=== PATIENT | female | born 1990 | race Caucasian/White ===

== ENCOUNTER 2018-09-28 10:01 | Outpatient (CLI) | payer MEDICAID ==
--- NOTE | 2018-09-28 13:53 | XRAY Report ---
Reason: CHEST WALL PAIN Procedure Date: 09/28/2018 Accession Number: [id number] / [id number] Procedure: XR - Chest 2 View X-Ray CPT Code: 05449 FULL RESULT: EXAM: CHEST RADIOGRAPHY EXAM DATE: 09/28/2018 10:27 AM. CLINICAL HISTORY: Chest wall pain. COMPARISON: None. TECHNIQUE: 2 views. FINDINGS: Lungs/Pleura: No focal opacities evident. No pleural effusion. No pneumothorax. Normal volumes. Mediastinum: Heart and mediastinal contours are unremarkable. Other: None. IMPRESSION: Normal 2-view chest radiography. RADIA
== END 2018-09-28 10:02 | disposition home or self-care (01) ==
LOC: DI 10:01
PROVIDERS: ATTEND Internal Medicine
DX: R07.89 Other chest pain (principal)
CPT/HCPCS: 71046

== ENCOUNTER 2020-04-17 06:48 | Outpatient (CLI) | payer MEDICAID ==
--- NOTE | 2020-04-17 12:26 | Ultrasound Report ---
PROCEDURE: OB First Trimester INDICATIONS: RETAINED PRODUCTS OF CONCEPTION OUTSIDE/PRIOR DATING DATA: Last menstrual period (LMP): 02/13/2020. LMP-based estimated date of delivery (CLIFF): 11/19/2020. First dating scan (date and location): 04/17/2020. Estimated date of delivery (CLIFF) from first dating scan: 11/22/2020. TECHNIQUE: Real-time scanning was performed of the fetus and maternal pelvic organs, with image documentation. COMPARISON: None FINDINGS: Embryo: Single live intrauterine is identified with crown-rump length measuring 2.0 cm cor responding to 8 weeks 4 days. No heart rate is identified at 171 bpm. Cervical length is within nata l limits. There is a small focus of subchorionic hemorrhage measuring 4.0 x 2.0 x 1.7 cm. Measurement variability in dating: +/- 4 weeks by LMP, +/- 7 days by mean sac diameter (use before 6 weeks gestation if crown-rump length not able to be measured), +/- 5 days by crown-rump length (6-12 weeks gestation). Maternal organs: Ovaries are unremarkable. Limited images through the kidneys demonstrate no hydron ephrosis. IMPRESSION: 1. Single live intrauterine with ultrasound gestational age of 8 weeks 4 days corresponding to ultrasound CLIFF of 11/22/2020. 2. Subchorionic hemorrhage as above. 3. Recommend follow-up imaging at 20-22 weeks for dates and anatomy. Reviewed by: Keshia Morgan MD on 04/17/2020 12:25 PM PDT Approved by: Keshia Morgan MD on 04/17/2020 12:25 PM PDT Station ID: [id number]
== END 2020-04-17 06:49 | disposition home or self-care (01) ==
LOC: DI 06:48
PROVIDERS: ATTEND Obstetrics & Gynecology
DX: Z32.01 Encounter for pregnancy test, result positive (principal)
CPT/HCPCS: 76801

== ENCOUNTER 2020-07-01 11:21 | Outpatient (CLI) | payer MEDICAID ==
--- NOTE | 2020-07-01 16:51 | Ultrasound Report ---
PROCEDURE: OB Detailed Eval INDICATIONS: SUPERVISION OF NORMAL PREGNENCY OUTSIDE/PRIOR DATING DATA: Last menstrual period (LMP): 02/13/2020. LMP-based estimated date of delivery (CLIFF): 11/19/2020. First dating scan (date and location): 04/17/2020. Estimated date of delivery (CLIFF) from first dating scan: 11/22/2020. TECHNIQUE: Real-time scanning was performed of the fetus, with image documentation and biometric measurements. Endovaginal scanning: Not needed. COMPARISON: 04/17/2020 FINDINGS: General: A single living intrauterine gestation is present. Presentation: Transverse, variable at this time Placenta: Placental position is posterior, without previa. Amniotic fluid index: 13.9 cm, 50th percentile for gestational age. heart rate: 139 beats per minute. Maternal cervical canal: 4.5 cm long; normal length is 2.5 cm or more. biometrics: Biparietal diameter: 4.4 cm, 19 weeks 2 days Head circumference: 16.1 cm, 18 weeks 6 days Abdominal circumference: 14.3 cm, 19 weeks 4 days Femur length: 3.0 cm, 19 weeks 3 days Estimated gestational age from initial scan: 19 weeks 3 days. Composite gestational age from present scan: 19 weeks 1 day Estimated weight and percentile: 2 93 g, 46.3 percentile Measurement variability in biometric dating: +/- 10 days from 12-20 weeks gestation, +/- 2 weeks from 20-30 weeks gestation, +/- 3 weeks at 30 weeks gestation or later. Anatomic survey: Neuro: Ventricles are normal at less than 10 mm. Cisterna magna is normal at 3-11 mm. Cerebellum i s normal in size and morphology. Nuchal skin fold: Normal at less than 6 mm between 14 and 20 weeks gestational age. Face: Nose and lips, facial profile are normal. Spine: No evidence for spina bifida. Heart: 4-chambered heart is present, with normal ventricular outflow tracts. Diaphragm: Diaphragm is intact. Stomach: Left-sided stomach is present. Kidneys: No hydronephrosis. Normal is less than 5 mm in 2nd trimester, less than 7 mm in 3rd trimester. Cord: 3 vessel cord has orthotopic insertion. Bladder: Normal in size. Extremities: All 4 extremities are visualized. IMPRESSION: Appropriate interval growth, no anomaly seen. Normal amniotic fluid volume, the delivery date i s projected to be centered on 11/22/2020, +/- 5 days. Current position is transverse, variable at this time. Reviewed by: Rodolfo Ramirez MD on 07/01/2020 4:50 PM PDT Approved by: Rodolfo Ramirez MD on 07/01/2020 4:50 PM PDT Station ID: [id number]
== END 2020-07-01 11:22 | disposition home or self-care (01) ==
LOC: DI 11:21
PROVIDERS: ATTEND Obstetrics & Gynecology
DX: Z34.80 Encounter for supervision of other normal pregnancy, unspecified trimester (principal)
CPT/HCPCS: 76811

== ENCOUNTER 2020-08-16 21:49 | Outpatient (CLI) | payer MEDICAID ==
[2020-08-16 22:37] LABS: BASOPHILS # (AUTO) 0.1 10^3/uL (0.0-0.1); BASOPHILS % (AUTO) 0.6 %; EOSINOPHILS # (AUTO) 0.2 10^3/uL (0.0-0.7); EOSINOPHILS % (AUTO) 1.3 %; HGB - HEMOGLOBIN 11.1 g/dL (12.0-16.0); LYMPHOCYTES # (AUTO) 3.4 10^3/uL (1.5-3.5); LYMPHOCYTES % (AUTO) 27.8 %; MEAN CORPUSCULAR HEMOGLOBIN 32.2 pg (27.0-31.0); MEAN CORPUSCULAR HGB CONC 33.8 g/dL (32.0-36.0); MEAN CORPUSCULAR VOLUME 95.1 fL (81.0-99.0); MEAN PLATELET VOLUME 10.6 fL (7.9-10.8); MONOCYTES % (AUTO) 7.9 %; NEUTROPHILS # (AUTO) 7.2 10^3/uL (1.5-6.6); NEUTROPHILS % (AUTO) 58.3 %; PLT - PLATELET COUNT 218 10^3/uL (130-450); RED BLOOD COUNT 3.45 10^6/uL (4.20-5.40); RED CELL DISTRIBUTION WIDTH 12.7 % (12.0-15.0); WHITE BLOOD COUNT 12.3 x10^3/uL (4.8-10.8)
[2020-08-16 23:04] VITALS: BP 132/73
[2020-08-16 23:07] LABS: ALBUMIN/GLOBULIN RATIO 0.9 (1.0-2.2); BILIRUBIN,TOTAL 0.3 mg/dL (0.2-1.0); CALCIUM 9.4 mg/dL (8.5-10.3); CREATININE 0.5 mg/dL (0.4-1.0); TOTAL PROTEIN 6.3 g/dL (6.7-8.2)
[2020-08-16 23:09] LABS: PLATELET ESTIMATE, MANUAL NORMAL (130-450,000) (NORMAL); PLATELET MORPHOLOGY NORMAL APPEARANCE (NORMAL); RBC MORPHOLOGY (MULTIPLE) NORMAL APPEARANCE (NORMAL)
[2020-08-16 23:19] LABS: CREATININE,URINE 37.1 mg/dL; TOTAL PROTEIN,URINE TIMED < 6 mg/dL
--- NOTE | 2020-08-16 23:33 | Labor Flowsheet ---
Labor Flowsheet Datetime Report Generated by CPN: 08/16/2020 23:33 Datetime: 08/16/2020 22:59 VITAL SIGNS NBP Sys/Rosa/Mean (mmHg): 132 : 73 : 86 Pulse: 101 Datetime: 08/16/2020 22:03 SpO2 (%): 100
--- NOTE | 2020-08-17 13:19 | PROCEDURE REPORT ---
- HPI Diagnosis/Indication for NST: Other (abd pain) Current EDU 11/19/20 Gestation 26 Weeks and 3 Days 3 Para 2 Vital Signs Temperature 98.8 F 08/16/20 22:08 Heart Rate 109 H 08/16/20 22:08 Respiratory Rate 16 08/16/20 22:08 Blood Pressure 146/84 H 08/16/20 22:08 O2 Saturation 100 08/16/20 22:08 Temperature 98.8 F 08/16/20 22:08 Heart Rate 101 H 08/16/20 22:36 Respiratory Rate 16 08/16/20 22:08 Blood Pressure 132/73 H 08/16/20 22:36 O2 Saturation 100 08/16/20 22:08 - NST Procedure Category 1 NST [employer] neg - Results and Plan Findings/Impression: Category 1 NST [employer] neg Plan: Pt has had intermittently elevated BP this and felt upper abd pain which she knew was a warning sign for preeclampsia. No SZYMANSKI, visual changes, or c hange in swelling. RUQ has been 4/10 intensity. Initial BP was elevated but repeat BPs were all normal. Normal PIH labs. P:C ratio 0. Preeclampsia precautions given, OK to follow up per routine in clinic. Take BP daily and keep a log.
== END 2020-08-16 23:30 | disposition home or self-care (01) ==
LOC: WFO 21:49 → FBP 21:50 → WFO 23:30
PROVIDERS: ATTEND Obstetrics & Gynecology
DX: O99.891 Other specified diseases and conditions complicating pregnancy (principal); R10.10 Upper abdominal pain, unspecified; O16.2 Unspecified maternal hypertension, second trimester; Z3A.26 26 weeks gestation of pregnancy
CPT/HCPCS: 80053; 82570; 84156; 84450; 84460; 84550; 85025; 99213

== ENCOUNTER 2020-09-02 09:18 | Outpatient (CLI) | payer MEDICAID ==
[2020-09-02 10:41] LABS: HGB - HEMOGLOBIN 11.6 g/dL (12.0-16.0); MEAN CORPUSCULAR HEMOGLOBIN 32.1 pg (27.0-31.0); MEAN CORPUSCULAR HGB CONC 33.2 g/dL (32.0-36.0); MEAN CORPUSCULAR VOLUME 96.7 fL (81.0-99.0); MEAN PLATELET VOLUME 10.7 fL (7.9-10.8); RED BLOOD COUNT 3.61 10^6/uL (4.20-5.40); RED CELL DISTRIBUTION WIDTH 12.8 % (12.0-15.0); WHITE BLOOD COUNT 10.3 x10^3/uL (4.8-10.8)
== END 2020-09-02 09:19 | disposition home or self-care (01) ==
LOC: LAB 09:18
PROVIDERS: ATTEND Obstetrics & Gynecology
DX: Z34.80 Encounter for supervision of other normal pregnancy, unspecified trimester (principal)
CPT/HCPCS: 36415; 82950; 85027

== ENCOUNTER 2020-09-05 12:33 | Outpatient (CLI) | payer MEDICAID ==
--- NOTE | 2020-09-05 16:46 | Ultrasound Report ---
PROCEDURE: OB F/U or Repeat INDICATIONS: SUPERVISION OF NORMAL OUTSIDE/PRIOR DATING DATA: Last menstrual period (LMP): 02/05/2020. LMP-based estimated date of delivery (CLIFF): 11/19/2020. First dating scan (date and location): 04/17/2020. Estimated date of delivery (CLIFF) from first dating scan: 11/22/2020. TECHNIQUE: Real-time scanning was performed of the fetus, with image documentation and biometric measurements. Endovaginal scanning: Not performed COMPARISON: 07/01/2020 FINDINGS: General: A single living intrauterine gestation is present. Presentation: Cephalic Placenta: Placental position is posterior, without previa. Amniotic fluid index: 16.4 cm, 64th percentile for gestational age. Largest vertical pocket measure d 5.9 cm. heart rate: 155 beats per minute. Maternal cervical canal: 5.9 cm long; normal length is 2.5 cm or more. biometrics: Biparietal diameter: 7.06 cm, correlating with 28 weeks and 2 days Head circumference: 26.71 cm, correlating with 29 weeks and 01 day Abdominal circumference: 26.0 cm, correlating with 30 weeks and 01 day Femur length: 5.6 cm, correlating with 29 weeks and 6 days Estimated gestational age from initial scan: not applicable. Composite gestational age from present scan: 29 weeks and 3 days Estimated weight and percentile: 1456 g which correlates with the 72nd percentile for gestation al age Measurement variability in biometric dating: +/- 10 days from 12-20 weeks gestation, +/- 2 weeks from 20-30 weeks gestation, +/- 3 weeks at 30 weeks gestation or more. Other: Not applicable. IMPRESSION: Single living intrauterine gestation with an estimated sonographic gestational age of approximately 2 9 weeks and 3 days. Expected interval growth has occurred with the fetus measuring at the 72nd percen tile based off gestational age. Estimated weight measured 1456 g. Four-quadrant JOHNY measured 16.4 cm with largest vertical pocket measuring 5.9 cm. This correlates wit h the 64th percentile for gestational age. Reviewed by: Zohaib Isaac MD on 09/05/2020 4:45 PM PST Approved by: Zohaib Isaac MD on 09/05/2020 4:45 PM PST Station ID: [id number]
== END 2020-09-05 12:34 | disposition home or self-care (01) ==
LOC: DI 12:33
PROVIDERS: ATTEND Obstetrics & Gynecology
DX: Z34.83 Encounter for supervision of other normal pregnancy, third trimester (principal)
CPT/HCPCS: 76816

== ENCOUNTER 2020-10-22 07:00 | Outpatient (CLI) | payer MEDICAID | END 2020-10-22 23:59 | disposition home or self-care (01) | LOC: LAB.R 07:00 | PROVIDERS: ATTEND Obstetrics & Gynecology | DX: Z36.85 Encounter for antenatal screening for Streptococcus B (principal); Z34.80 Encounter for supervision of other normal pregnancy, unspecified trimester | CPT/HCPCS: 87797 ==

== ENCOUNTER 2020-10-29 12:09 | Outpatient (CLI) | payer MEDICAID ==
[2020-10-29 13:16] LABS: BASOPHILS # (AUTO) 0.1 10^3/uL (0.0-0.1); BASOPHILS % (AUTO) 0.5 %; EOSINOPHILS % (AUTO) 0.3 %; LYMPHOCYTES % (AUTO) 20.4 %; MEAN CORPUSCULAR HEMOGLOBIN 31.4 pg (27.0-31.0); MEAN CORPUSCULAR VOLUME 95.3 fL (81.0-99.0); MEAN PLATELET VOLUME 11.9 fL (7.9-10.8); MONOCYTES # (AUTO) 0.8 10^3/uL (0.0-1.0); NEUTROPHILS # (AUTO) 6.7 10^3/uL (1.5-6.6); NEUTROPHILS % (AUTO) 68.9 %; PLT - PLATELET COUNT 161 10^3/uL (130-450); RED BLOOD COUNT 3.82 10^6/uL (4.20-5.40); RED CELL DISTRIBUTION WIDTH 13.5 % (12.0-15.0); WHITE BLOOD COUNT 9.8 x10^3/uL (4.8-10.8)
[2020-10-29 13:20] LABS: ALBUMIN 3.1 g/dL (3.2-5.5); BILIRUBIN,TOTAL 0.5 mg/dL (0.2-1.0); CALCIUM 8.9 mg/dL (8.5-10.3); CREATININE 0.6 mg/dL (0.4-1.0); TOTAL PROTEIN 6.3 g/dL (6.7-8.2)
[2020-10-29 13:32] LABS: CREATININE,URINE 29.7 mg/dL
[2020-10-29 13:33] LABS: TOTAL PROTEIN,URINE TIMED < 6 mg/dL
[2020-10-29 14:11] VITALS: BP 137/80
--- NOTE | 2020-10-29 14:48 | PROCEDURE REPORT ---
- HPI Diagnosis/Indication for NST: Other (Elevated blood pressure without HTN) Current EDU 11/19/20 Gestation 37 Weeks and 0 Days 3 Para 2 Vital Signs Temperature 98.2 F 10/29/20 12:24 Heart Rate 130 H 10/29/20 12:24 Respiratory Rate 18 10/29/20 12:24 Blood Pressure 140/89 H 10/29/20 12:24 O2 Saturation 100 10/29/20 12:24 Temperature 98.2 F 10/29/20 12:24 Heart Rate 105 H 10/29/20 13:45 Respiratory Rate 16 10/29/20 13:45 Blood Pressure 137/80 H 10/29/20 13:45 O2 Saturation 98 10/29/20 13:45 - NST Procedure NST Procedure Start Date 10/29/20 Start Time 12:21 Stop Time 13:21 Vibroacoustic Stimulation Used No Patient States Movement Yes - Results and Plan Findings/Impression: Baseline: 125BPM Variability: Moderate Accelerations: Present Decelerations: Absent Trends in FHR over time: no changes Morrill contractions in 10 minutes: 2-3, pt not feeling them Impression: reactive Category 1 NST Sent from clinic for elevated BP taken at 11:15. Initial BP here elevated 140/89 but remainder were normal. No SZYMANSKI, visual changes, or upper abd pain. Some increase in ankle swelling today. PIH bloodwork normal, P:C ratio neg, 2+ edema ankle, 1+ edema to quezada, 3+ dTR, 1 beat of clonus. Patient had to leave due to childcare issue. Will return for BP monitoring later today. Final diagnosis: elevated BP without dx of hypertension
== END 2020-10-29 14:00 | disposition home or self-care (01) ==
LOC: WFO 12:09 → FBP 12:09 → WFO 14:00
PROVIDERS: ATTEND Obstetrics & Gynecology
DX: O26.893 Other specified pregnancy related conditions, third trimester (principal); R03.0 Elevated blood-pressure reading, without diagnosis of hypertension; Z3A.37 37 weeks gestation of pregnancy
CPT/HCPCS: 80053; 82570; 84156; 85025; 86850; 86900; 86901; 86920; 99215

== ENCOUNTER 2020-10-29 17:48 | Inpatient (IN) | payer MEDICAID ==
[2020-10-29] MEDS ORDERED: miSOPROStoL 200 MCG TABLET BC PRN (19:02)
[2020-10-29] MEDS ORDERED: LIDOCAINE-MPF 1% 30 ML VIAL ID PRN (19:02)
[2020-10-29] MEDS ORDERED: OXYTOCIN 10 UNIT/ML VIAL IM PRN (19:02)
[2020-10-29] MEDS ORDERED: fentaNYL 100 MCG/2 ML VIAL IVP PRN (19:02)
[2020-10-29] MEDS ORDERED: ACETAMINOPHEN 325 MG TABLET PO PRN (19:02)
[2020-10-29] MEDS ORDERED: SODIUM CHLORIDE FLUSH 0.9% 10 ML SYRINGE IVP PRN (19:02)
[2020-10-29] MEDS ORDERED: METOCLOPRAMIDE 10 MG/2 ML VIAL IVP PRN (19:02)
[2020-10-29] MEDS ORDERED: TRANEXAMIC ACID 1,000 MG in SODIUM CHLORIDE 0.9% 100ML 100 ML IV PRN (19:02)
[2020-10-29] MEDS ORDERED: CARBOPROST TROMETHAMINE 250 MCG/ML AMP IM PRN (19:02)
[2020-10-29] MEDS ORDERED: AMPICILLIN 2 GM in SODIUM CHLORIDE 0.9% MINIBAG 100 ML IV ONE (19:02)
[2020-10-29] MEDS ORDERED: TERBUTALINE 1 MG/ML VIAL SUBQ PRN (19:02)
[2020-10-29] MEDS ORDERED: ONDANSETRON 4 MG/2 ML VIAL IVP PRN (19:02)
--- NOTE | 2020-10-29 19:19 | HISTORY & PHYSICAL EXAMINATION ---
HPI - History of Present Illness HPI Comment/Other: CC: told to return to triage for BP check HPI: Went to office for routine OB check today where BP was 152/93 around 11:15. Went to triage for eval, had one mild-range BP, rest normal, labs normal, no sx. Had to return home due to childcare. Here BP is elevated again. Having new ankle swelling today. ROS: no fevers or cough. No SZYMANSKI, visual changes, or upper abdominal pain. PMH: gestational HTN PSH: neg Allergies: sulfa SH: no t/e/d Meds: PNV daily FH: no anesthesia problems OB: . CLIFF 11/19/19 by LMP c/w 8w US Prior pregnancies ucomplicated except for P1 had gestational HTN without preeclampsia and P2 had 9# birthweight. B+, RI, varicella s/p vax GBS + Genetic screen declined Anatomy scan normal 07/01: 46%ile, post placenta, 4.5cm CL, nl fluid. EFW 72%ile at 28w BC: condoms/NFP s/p flu and tdap vax Pap 03/2020 NILM/HPV neg PMH/PSH - Past Medical History MRSA Hx?: No Social & Family Hx - Social History Does the pt smoke?: No Smoking Status: Never smoker Does the pt drink ETOH?: No Does the pt have substance abuse?: No - POLST Patient has POLST: No Meds/Allgy - Allergies Allergies/Adverse Reactions: Allergies Allergy/AdvReac Type Severity Reaction Status Date / Time Sulfa (Sulfonamide Allergy Hives Verified 05/25/20 21:10 Antibiotics) Exam - Vital Signs Reviewed Vital Signs: Yes Vital Signs: Vital Signs x48h Temp Pulse Resp BP Pulse Ox 10/29/20 18:30 98 18 129/87 H 100 10/29/20 18:15 109 H 18 131/88 H 99 10/29/20 18:03 98.2 F 109 H 18 117/84 H 98 10/29/20 18:00 111 H 18 131/92 H - Physical Exam Comments/Other: Alert, nervous, smiling, NAD Abd soft, nt/nd EFW 8.75#, vertex by dee 2+ ankle edema, 1+ to mid quezada 3+ DTR, 1 beat of clonus SVE closed and long with RN Category 1 NST in triage Impression/Plan - Problem List Problem List: 30yo at 37w0d by LMP c/w 8w US with new dx of gestational HTN. Mild range BPs, no sx, neg P:C ratio, normal PIH labs. Will watch for any signs of developing preeclampsia. --IOL with misoprostol then pitocin -- wellbeing reassuring: vertex, normal anatomy scan, category 1 NST. Declined genetic screening. --Hx of 9# babies at 40w, this one 8.75# by dee, mom feels that baby is developing like her sisters did, EFW at 28w was 72%ile --GBS +, allergy to sulfa only, start ampicillin with pit. --Anticipate --No issues identified. S/p vax, Rh+, RI, , no hx of mood problems, does not want BTL.
[2020-10-29] MEDS ORDERED: diphenhydrAMINE 25 MG CAPSULE PO PRN (19:41)
[2020-10-29] MEDS ORDERED: AMPICILLIN 1 GM in SODIUM CHLORIDE 0.9% MINIBAG 100 ML IV SCH (20:00)
[2020-10-29] MEDS: miSOPROStoL 100 MCG TABLET BC SCH (20:03)
[2020-10-30] MEDS: miSOPROStoL 100 MCG TABLET BC SCH ×5 (00:18→18:39)
[2020-10-30] MEDS ORDERED: SODIUM CHLORIDE FLUSH 0.9% 10 ML SYRINGE IVP SCH (01:00)
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
--- NOTE | 2020-10-30 08:28 | Discharge Plan ---
Discharge Plan Problem Reviewed?: Yes Disposition: Home, Self Care Condition: Good Prescriptions: Docusate Sodium 100Mg Capsule [Colace 100Mg Capsule] 100 mg PO BID PRN #30 capsule PRN Reason: to soften stool Ibuprofen [Motrin] 600 mg PO Q6H PRN #30 tab PRN Reason: Pain Pnv No.95/Ferrous Fum/Folic AC [ Tablet] 1 tab PO DAILY #90 tablet oxyCODONE [Roxicodone] 5 mg PO Q4-6H PRN #20 tablet PRN Reason: Severe Pain Acetaminophen [Tylenol] 650 mg PO Q6H PRN #45 tablet PRN Reason: PRN PAIN &/OR FEVER Diet: Regular Shower Restrictions: No Driving Restrictions: Yes (Not when taking oxycodone) Additional Instructions or Follow Up instructions: Nothing in the vagina for 6 weeks: No intercourse, tampons, douching Call for: -Fever greater than 100.5 -Pain that does not improve with pain medication -Heavy bleeding in which you are soaking a pad an hour for 2 hours in a row -Incision becomes hot, hard, red, starts to open, or leaks foul smelling fluid No lifting more than 10# for [address] while on narcotics Ok to shower. Let water run over the incision and pat some soap onto the area. Do not scrub or apply lotion. Pat dry with a clean towel or use a chair. OK to use an unscented sanitary napkin or clean washcloth to keep the incision dry if the belly folds over the incision. No Smoking: If you smoke, Please STOP! Call for help. Follow-up with: Misha Shelley MD [Provider Admit Priv/Credential] - (1w and 6w)
--- NOTE | 2020-10-30 10:28 | PROVIDER PROGRESS NOTE ---
Subjective - Subjective Subjective: S: some random cramping, nothing impressive. No ROM, no VB, no SZYMANSKI, no visual changes, no upper abd pain, no change in edema. O: BP in low-mild range Category 1 tracing A/P: 30yo at 37w IOL for gest HTN. s/p 4 doses of misoprostol. Will complete course, recheck SVE, and go from there. GBS + plan abx when pitocin starts. Hx LGA babies at 40w Objective - Vital Signs/Intake & Output Vital Signs: Vital Signs x48h Temp 10/30/20 04:24 98.2 F
--- NOTE | 2020-10-30 19:49 | PROVIDER PROGRESS NOTE ---
Subjective - Subjective Subjective: Did well today, no problems, some cramping. No VB or LOF. Category 1 NST, irregular UC SVE 1/thick/-2/med/mid Pt is s/p 6 doses of miso. Start pitocin and GBS prophylaxis. Objective - Vital Signs/Intake & Output Intake & Output: Intake & Output 10/27/20 10/28/20 10/29/20 10/30/20 23:59 23:59 23:59 23:59 Intake Total 750 Balance 750
[2020-10-30] MEDS ORDERED: OXYTOCIN/SODIUM CHLORIDE 500 ML IV SCH (20:00)
[2020-10-30] MEDS: LACTATED RINGERS 1,000 ML IV SCH (22:54)
[2020-10-31] MEDS ORDERED: ROPIVACAINE 0.2% 200 MG/100 ML BAG EP ONE (01:23)
[2020-10-31] MEDS: LACTATED RINGERS 1,000 ML IV SCH (02:13)
[2020-10-31] MEDS ORDERED: ONDANSETRON 4 MG/2 ML VIAL IVP PRN (02:25)
[2020-10-31] MEDS ORDERED: NALOXONE 0.4 MG/ML VIAL IVP PRN (02:25)
[2020-10-31] MEDS ORDERED: ePHEDrine 50 MG/ML VIAL IVP PRN (02:25)
[2020-10-31] MEDS ORDERED: NALBUPHINE 10 MG/ML AMP IVP PRN (02:25)
[2020-10-31] MEDS ORDERED: ROPIVACAINE 0.2% 200 MG/100 ML BAG EP PRN (02:25)
[2020-10-31] MEDS ORDERED: diphenhydrAMINE INJ 50 MG/ML VIAL IVP PRN (02:25)
[2020-10-31] MEDS ORDERED: TRANEXAMIC ACID 1,000 MG/10 ML VIAL ONE (03:16)
[2020-10-31] MEDS ORDERED: CARBOPROST TROMETHAMINE 250 MCG/ML AMP IM ONE (03:17)
[2020-10-31] MEDS ORDERED: HYDROCORTISONE 1% CREAM 28 GM TUBE PR PRN (03:56)
[2020-10-31] MEDS ORDERED: WITCH HAZEL/GLYCERIN 1 PAD TOP PRN (03:56)
--- NOTE | 2020-10-31 04:30 | DELIVERY NOTE ---
Delivery Note - Labor Labor: positive: Induced by oxytocin - Infant Delivery Method Delivery Method: positive: Spontaneous vaginal delivery - Cervical Ripening Method Cervical Ripening Method: positive: Misoprostil - Presentation Presentation: positive: Vertex - Nuchal Cord Nuchal Cord: positive: None - Amniotic Fluid Description Amniotic Fluid Description: positive: Clear - Episiotomy Type Episiotomy Type: positive: None - Laceration Laceration: positive: None - Delivery Outcome Delivery Outcome: positive: Livebirth - [place]: positive: Placed in direct skin contact with mother, Bulb syringe, Stimulated, Warmed, [place] used, Warmer used [place] sex: positive: Female : Apgars 7/8 - Cord Cord: positive: 3 vessels - Placenta Placenta: positive: Intact, Spontaneous - Estimated Blood Loss Estimated Blood Loss (in cc): 700 - Post Delivery Events Post Delivery Events: positive: Hemorrhage - Delivery Comments (Free Text/Narrative) Delivery Comments (Free Text/Narrative): Patient was induced at 37w for gestational hypertension. Throughout her induction, she did not develop preeclampsia. She did not have any SZYMANSKI, visual changes, or upper abdominal pain. Her labs were normal and she did not have proteinuria. BPs were in the normal to low-mild range. Induction was performed with 6 doses of misoprostol followed by pitocin. Ampicillin was started with the pitocin for GBS prophylaxis. SROM clear. She received an epidural for pain control. Her pitocin was turned off due to rapid cervical progression. She developed a category 2 tracing with late decelerations, normal baseline, and minimal LTV. IV fluid bolus, position changes, and oxygen therapy were initiated. Her exam continued to rapidly progress. She pushed for 7min to deliver. The tracing did not worsen during this time and labor progression was rapid enough that operative vaginal delivery was not indicated. After delivery, the cord was left intact. Pitocin bolus given for active management of the 3rd stage of labor. Inspection revealed no lacerations. At about 4min, she started having gushes of bleeding. The cord was clamped x2 and cut. She pushed the placenta out within a minute of this--it was intact. Bleeding persisted. Continuous fundal massage was performed and tranexamic acid was given. Tone was excellent and the bleeding improved to a slow trickle. This persisted and so an ultrasound was done to eval for any retained placenta. The ultrasound revealed clot in the lower uterine segment. A manual sweep of clot was performed with 350cc of quantitative clot removed. The trickle continued and so she was given a dose of hemabate and preparations were made for a bakri balloon placement. During this time the bleeding normalized to scant. The bakri was not needed. Will check CBC in a few hours.
[2020-10-31] MEDS ORDERED: fentaNYL 100 MCG/2 ML VIAL IVP PRN (05:39)
[2020-10-31] MEDS: OXYTOCIN/SODIUM CHLORIDE 500 ML IV PRN ×2 (06:32→15:15)
[2020-10-31 06:38] LABS: BASOPHILS # (AUTO) 0.1 10^3/uL (0.0-0.1); BASOPHILS % (AUTO) 0.3 %; LYMPHOCYTES # (AUTO) 0.9 10^3/uL (1.5-3.5); LYMPHOCYTES % (AUTO) 3.5 %; MEAN CORPUSCULAR HEMOGLOBIN 31.8 pg (27.0-31.0); MEAN CORPUSCULAR HGB CONC 33.8 g/dL (32.0-36.0); MEAN CORPUSCULAR VOLUME 94.2 fL (81.0-99.0); MEAN PLATELET VOLUME 11.9 fL (7.9-10.8); MONOCYTES % (AUTO) 8.2 %; NEUTROPHILS # (AUTO) 21.8 10^3/uL (1.5-6.6); NEUTROPHILS % (AUTO) 87.3 %; PLT - PLATELET COUNT 150 10^3/uL (130-450); RED BLOOD COUNT 3.77 10^6/uL (4.20-5.40); RED CELL DISTRIBUTION WIDTH 13.5 % (12.0-15.0)
--- NOTE | 2020-10-31 06:41 | PROCEDURE REPORT ---
Hospitalist Procedure Note - Procedure Note Procedure Note: Pt sitting in wheelchair in nursery with hand on baby to be transported. Fundal height 4cm above U. Brought to her room, given fentanyl 100mcg, uterus swept, bakri placed an inflated with 300cc of crystalloid. Packed with nearly a whole roll of kerlix. [place] placed. Fundus currently still 4cm above U. Check labs now. QBL now 520cc. + Initial 700cc EBL. Have discussed indications for transfusion including very low Hct, dizziness, SZYMANSKI, SOB, CP. Discussed risk and benefit of transfusion. Currently AVSS with HR in 70s-80s. Type and crossed for 2U PRBC and FFP is being thawed. CBC, CMP, fibrinogen are pending.
[2020-10-31 06:56] LABS: ALBUMIN 2.8 g/dL (3.2-5.5); ALBUMIN/GLOBULIN RATIO 0.9 (1.0-2.2); BILIRUBIN,TOTAL 1.1 mg/dL (0.2-1.0); CALCIUM 8.8 mg/dL (8.5-10.3); CREATININE 0.6 mg/dL (0.4-1.0)
[2020-10-31 07:16] LABS: RBC MORPHOLOGY (MULTIPLE) 2+ ANISOCYTOSIS (NORMAL)
[2020-10-31] MEDS: AMPICILLIN/SULBACTAM 3 GM in SODIUM CHLORIDE 0.9% MINIBAG 100 ML IV SCH ×2 (07:59→14:17)
[2020-10-31 08:12] LABS: HGB - HEMOGLOBIN 11.8 g/dL (12.0-16.0); MEAN CORPUSCULAR HEMOGLOBIN 32.1 pg (27.0-31.0); MEAN CORPUSCULAR HGB CONC 33.6 g/dL (32.0-36.0); MEAN CORPUSCULAR VOLUME 95.4 fL (81.0-99.0); RED BLOOD COUNT 3.68 10^6/uL (4.20-5.40); RED CELL DISTRIBUTION WIDTH 13.4 % (12.0-15.0); WHITE BLOOD COUNT 25.7 x10^3/uL (4.8-10.8)
[2020-10-31] MEDS: oxyCODONE 5 MG TABLET PO PRN ×2 (08:16→14:15)
[2020-10-31 08:28] LABS: ALBUMIN 2.9 g/dL (3.2-5.5); CALCIUM 9.1 mg/dL (8.5-10.3); CREATININE 0.5 mg/dL (0.4-1.0); TOTAL PROTEIN 5.9 g/dL (6.7-8.2)
[2020-10-31] MEDS ORDERED: DOCUSATE SODIUM 100 MG CAPSULE PO SCH (09:00)
--- NOTE | 2020-10-31 09:51 | PROVIDER PROGRESS NOTE ---
Objective - Vital Signs/Intake & Output Reviewed Vital Signs: Yes Vital Signs: Vital Signs x48h Temp Pulse Resp BP Pulse Ox 10/31/20 07:54 98.4 F 10/31/20 07:11 78 18 150/97 H 10/31/20 02:26 96 18 136/73 H 99 Intake & Output: Intake & Output 10/28/20 10/29/20 10/30/20 10/31/20 23:59 23:59 23:59 23:59 Intake Total 850 975 Output Total 1700 Balance 850 -725 - Lab Results Fish Bones: 10/31/20 08:04 10/31/20 08:04 Other Labs: Lab Results x24hrs 10/31/20 10/31/20 10/31/20 Range/Units 08:04 08:04 06:27 WBC 25.7 H (4.8-10.8) x10^3/uL RBC 3.68 L (4.20-5.40) 10^6/uL Hgb 11.8 L (12.0-16.0) g/dL Hct 35.1 L (37.0-47.0) % MCV 95.4 (81.0-99.0) fL MCH 32.1 H (27.0-31.0) pg MCHC 33.6 (32.0-36.0) g/dL RDW 13.4 (12.0-15.0) % Plt Count 149 (130-450) 10^3/uL MPV 12.0 H (7.9-10.8) fL Neut # (Auto) (1.5-6.6) 10^3/uL Lymph # (Auto) (1.5-3.5) 10^3/uL Sampson # (Auto) (0.0-1.0) 10^3/uL Eos # (Auto) (0.0-0.7) 10^3/uL Baso # (Auto) (0.0-0.1) 10^3/uL Absolute Nucleated RBC x10^3/uL Nucleated RBC % /100WBC Manual Slide Review RBC Morph Micro Appear (NORMAL) Fibrinogen (220-496) mg/dL Sodium 138 134 L (135-145) mmol/L Potassium 4.0 3.9 (3.5-5.0) mmol/L Chloride 104 105 (101-111) mmol/L Carbon Dioxide 20 L 20 L (21-32) mmol/L Anion Gap 14.0 H 9.0 (6-13) BUN 9 9 (6-20) mg/dL Creatinine 0.5 0.6 (0.4-1.0) mg/dL Estimated GFR (MDRD) 143 116 (>89) Glucose 105 H 109 H (70-100) mg/dL Calcium 9.1 8.8 (8.5-10.3) mg/dL Total Bilirubin 1.0 1.1 H (0.2-1.0) mg/dL AST 21 20 (10-42) IU/L ALT 11 11 (10-60) IU/L Alkaline Phosphatase 97 95 (42-121) IU/L Total Protein 5.9 L 6.0 L (6.7-8.2) g/dL Albumin 2.9 L 2.8 L (3.2-5.5) g/dL Globulin 3.0 3.2 (2.1-4.2) g/dL Albumin/Globulin Ratio 1.0 0.9 L (1.0-2.2) 10/31/20 10/31/20 Range/Units 06:27 06:27 WBC 25.0 H (4.8-10.8) x10^3/uL RBC 3.77 L (4.20-5.40) 10^6/uL Hgb 12.0 (12.0-16.0) g/dL Hct 35.5 L (37.0-47.0) % MCV 94.2 (81.0-99.0) fL MCH 31.8 H (27.0-31.0) pg MCHC 33.8 (32.0-36.0) g/dL RDW 13.5 (12.0-15.0) % Plt Count 150 (130-450) 10^3/uL MPV 11.9 H (7.9-10.8) fL Neut # (Auto) 21.8 H (1.5-6.6) 10^3/uL Lymph # (Auto) 0.9 L (1.5-3.5) 10^3/uL Sampson # (Auto) 2.0 H (0.0-1.0) 10^3/uL Eos # (Auto) 0.0 (0.0-0.7) 10^3/uL Baso # (Auto) 0.1 (0.0-0.1) 10^3/uL Absolute Nucleated RBC 0.00 x10^3/uL Nucleated RBC % 0.0 /100WBC Manual Slide Review Indicated RBC Morph Micro Appear 2+ ANISOCYTOSIS (NORMAL) Fibrinogen 298 (220-496) mg/dL Sodium (135-145) mmol/L Potassium (3.5-5.0) mmol/L Chloride (101-111) mmol/L Carbon Dioxide (21-32) mmol/L Anion Gap (6-13) BUN (6-20) mg/dL Creatinine (0.4-1.0) mg/dL Estimated GFR (MDRD) (>89) Glucose (70-100) mg/dL Calcium (8.5-10.3) mg/dL Total Bilirubin (0.2-1.0) mg/dL AST (10-42) IU/L ALT (10-60) IU/L Alkaline Phosphatase (42-121) IU/L Total Protein (6.7-8.2) g/dL Albumin (3.2-5.5) g/dL Globulin (2.1-4.2) g/dL Albumin/Globulin Ratio (1.0-2.2) - Other Results/Comments Other Results/Comments: Bleeding stable--90cc QBL since placement of Bakri. Good UOP. Fundal height no change 4cm above umbilicus. No SZYMANSKI, CP, SOB, or dizziness. REsting in bed with SCD and morales. If stable in 2h then plan for saline lock IV, trial of OOB, OK to eat. Will leave morales in situ while Bakri is. s/p first dose of unasyn and will continue while bakri is in situ.
[2020-10-31] MEDS ORDERED: SODIUM CHLORIDE 0.9% 1,000 ML IV ONE (10:59)
[2020-10-31 13:26] LABS: BASOPHILS # (AUTO) 0.1 10^3/uL (0.0-0.1); BASOPHILS % (AUTO) 0.3 %; HGB - HEMOGLOBIN 11.5 g/dL (12.0-16.0); LYMPHOCYTES % (AUTO) 9.1 %; MEAN CORPUSCULAR HEMOGLOBIN 32.1 pg (27.0-31.0); MEAN CORPUSCULAR HGB CONC 33.3 g/dL (32.0-36.0); MEAN CORPUSCULAR VOLUME 96.4 fL (81.0-99.0); MEAN PLATELET VOLUME 12.2 fL (7.9-10.8); MONOCYTES % (AUTO) 4.8 %; NEUTROPHILS # (AUTO) 18.4 10^3/uL (1.5-6.6); NEUTROPHILS % (AUTO) 84.9 %; PLT - PLATELET COUNT 150 10^3/uL (130-450); RED BLOOD COUNT 3.58 10^6/uL (4.20-5.40); RED CELL DISTRIBUTION WIDTH 13.5 % (12.0-15.0); WHITE BLOOD COUNT 21.7 x10^3/uL (4.8-10.8)
[2020-10-31 13:45] LABS: RBC MORPHOLOGY (MULTIPLE) 1+ ANISOCYTOSIS (NORMAL)
--- NOTE | 2020-10-31 15:23 | PROVIDER PROGRESS NOTE ---
Subjective - Subjective Subjective: Feeling well, able to get OOB for gary care once. Objective - Vital Signs/Intake & Output Reviewed Vital Signs: Yes Vital Signs: Vital Signs x48h Temp Pulse Resp BP BP Pulse Ox 10/31/20 10:00 83 145/84 H 10/31/20 09:45 97 20 137/76 H 10/31/20 09:30 85 140/80 H 10/31/20 09:15 89 20 130/76 10/31/20 09:00 81 20 144/83 H 10/31/20 08:45 74 20 132/88 H 10/31/20 08:30 73 17 143/78 H 10/31/20 08:15 73 18 147/80 H 98 10/31/20 07:54 98.4 F 10/31/20 07:46 77 17 145/84 H 100 10/31/20 07:30 75 17 155/69 H 100 Intake & Output: Intake & Output 10/28/20 10/29/20 10/30/20 10/31/20 23:59 23:59 23:59 23:59 Intake Total 850 1575 Output Total 2510 Balance 850 -935 - Lab Results Fish Bones: 10/31/20 13:15 10/31/20 08:04 Other Labs: Lab Results x24hrs 10/31/20 10/31/20 10/31/20 Range/Units 13:15 08:04 08:04 WBC 21.7 H 25.7 H (4.8-10.8) x10^3/uL RBC 3.58 L 3.68 L (4.20-5.40) 10^6/uL Hgb 11.5 L 11.8 L (12.0-16.0) g/dL Hct 34.5 L 35.1 L (37.0-47.0) % MCV 96.4 95.4 (81.0-99.0) fL MCH 32.1 H 32.1 H (27.0-31.0) pg MCHC 33.3 33.6 (32.0-36.0) g/dL RDW 13.5 13.4 (12.0-15.0) % Plt Count 150 149 (130-450) 10^3/uL MPV 12.2 H 12.0 H (7.9-10.8) fL Neut # (Auto) 18.4 H (1.5-6.6) 10^3/uL Lymph # (Auto) 2.0 (1.5-3.5) 10^3/uL [place] # (Auto) 1.0 (0.0-1.0) 10^3/uL Eos # (Auto) 0.0 (0.0-0.7) 10^3/uL Baso # (Auto) 0.1 (0.0-0.1) 10^3/uL Absolute Nucleated RBC 0.00 x10^3/uL Nucleated RBC % 0.0 /100WBC Manual Slide Review Indicated RBC Morph Micro Appear 1+ ANISOCYTOSIS (NORMAL) Fibrinogen (220-496) mg/dL Sodium 138 (135-145) mmol/L Potassium 4.0 (3.5-5.0) mmol/L Chloride 104 (101-111) mmol/L Carbon Dioxide 20 L (21-32) mmol/L Anion Gap 14.0 H (6-13) BUN 9 (6-20) mg/dL Creatinine 0.5 (0.4-1.0) mg/dL Estimated GFR (MDRD) 143 (>89) Glucose 105 H (70-100) mg/dL Calcium 9.1 (8.5-10.3) mg/dL Total Bilirubin 1.0 (0.2-1.0) mg/dL AST 21 (10-42) IU/L ALT 11 (10-60) IU/L Alkaline Phosphatase 97 (42-121) IU/L Total Protein 5.9 L (6.7-8.2) g/dL Albumin 2.9 L (3.2-5.5) g/dL Globulin 3.0 (2.1-4.2) g/dL Albumin/Globulin Ratio 1.0 (1.0-2.2) 10/31/20 10/31/20 10/31/20 Range/Units 06:27 06:27 06:27 WBC 25.0 H (4.8-10.8) x10^3/uL RBC 3.77 L (4.20-5.40) 10^6/uL Hgb 12.0 (12.0-16.0) g/dL Hct 35.5 L (37.0-47.0) % MCV 94.2 (81.0-99.0) fL MCH 31.8 H (27.0-31.0) pg MCHC 33.8 (32.0-36.0) g/dL RDW 13.5 (12.0-15.0) % Plt Count 150 (130-450) 10^3/uL MPV 11.9 H (7.9-10.8) fL Neut # (Auto) 21.8 H (1.5-6.6) 10^3/uL Lymph # (Auto) 0.9 L (1.5-3.5) 10^3/uL [place] # (Auto) 2.0 H (0.0-1.0) 10^3/uL Eos # (Auto) 0.0 (0.0-0.7) 10^3/uL Baso # (Auto) 0.1 (0.0-0.1) 10^3/uL Absolute Nucleated RBC 0.00 x10^3/uL Nucleated RBC % 0.0 /100WBC Manual Slide Review Indicated RBC Morph Micro Appear 2+ ANISOCYTOSIS (NORMAL) Fibrinogen 298 (220-496) mg/dL Sodium 134 L (135-145) mmol/L Potassium 3.9 (3.5-5.0) mmol/L Chloride 105 (101-111) mmol/L Carbon Dioxide 20 L (21-32) mmol/L Anion Gap 9.0 (6-13) BUN 9 (6-20) mg/dL Creatinine 0.6 (0.4-1.0) mg/dL Estimated GFR (MDRD) 116 (>89) Glucose 109 H (70-100) mg/dL Calcium 8.8 (8.5-10.3) mg/dL Total Bilirubin 1.1 H (0.2-1.0) mg/dL AST 20 (10-42) IU/L ALT 11 (10-60) IU/L Alkaline Phosphatase 95 (42-121) IU/L Total Protein 6.0 L (6.7-8.2) g/dL Albumin 2.8 L (3.2-5.5) g/dL Globulin 3.2 (2.1-4.2) g/dL Albumin/Globulin Ratio 0.9 L (1.0-2.2) - Other Results/Comments Other Results/Comments: Bleeding is stable, very little output into the bakri bag. Bakri deflated, vag packing removed, bakri removed without difficulty. No uptick in bleeding. Fundus is 2cm above the umbilicus and rock-hard. Will do pitocin IV and morales for 4h. If bleeding is stable then remove morales and back to more routine care.
[2020-10-31] MEDS ORDERED: diphenhydrAMINE 25 MG CAPSULE PO PRN (21:22)
[2020-10-31] MEDS: IBUPROFEN 600 MG TABLET PO SCH (22:14)
[2020-11-01] MEDS: IBUPROFEN 600 MG TABLET PO SCH ×2 (06:15→16:03)
[2020-11-01] MEDS ORDERED: MEASLES,MUMPS & RUBELLA VACC 0.5 ML VIAL SUBQ ONE (12:00)
[2020-11-01 12:28] VITALS: BP 131/80
--- NOTE | 2020-11-01 14:35 | Discharge Plan ---
Discharge Plan Problem Reviewed?: Yes Disposition: Home, Self Care Condition: Good Prescriptions: Docusate Sodium 100Mg Capsule [Colace 100Mg Capsule] 100 mg PO BID PRN #30 capsule PRN Reason: to soften stool Ibuprofen [Motrin] 600 mg PO Q6H PRN #30 tab PRN Reason: Pain Pnv No.95/Ferrous Fum/Folic AC [ Tablet] 1 tab PO DAILY #90 tablet oxyCODONE [Roxicodone] 5 mg PO Q4-6H PRN #20 tablet PRN Reason: Severe Pain Acetaminophen [Tylenol] 650 mg PO Q6H PRN #45 tablet PRN Reason: PRN PAIN &/OR FEVER Shower Restrictions: No Driving Restrictions: No Additional Instructions or Follow Up instructions: Nothing in the vagina for 6 weeks: No intercourse, tampons, douching Call for: -Fever greater than 100.5 -Pain that does not improve with pain medication -Heavy bleeding in which you are soaking a pad an hour for 2 hours in a row -Incision becomes hot, hard, red, starts to open, or leaks foul smelling fluid No lifting more than 10# for 4 weeks [address] while on narcotics Ok to shower. Let water run over the incision and pat some soap onto the area. Do not scrub or apply lotion. Pat dry with a clean towel or use a hair assistant. OK to use an unscented sanitary napkin or clean washcloth to keep the incision dry if the belly folds over the incision. No Smoking: If you smoke, Please STOP! Call for help. Follow-up with: Misha Shelley MD [Provider Admit Priv/Credential] - (2w and 6w)
--- NOTE | 2020-11-01 15:26 | DISCHARGE SUMMARY ---
Physician: Penny Macias MD DATE OF ADMISSION: 10/30/2020 DATE OF DISCHARGE: 11/01/2020 ADMISSION DIAGNOSES 1. Intrauterine at 37 weeks 0 days. 2. Gestational hypertension. 3. Group B strep positive. DISCHARGE DIAGNOSES 1. Status post spontaneous vaginal delivery. 2. Lower uterine segment atony. 3. hemorrhage. PROCEDURES: On 10/31/2020, spontaneous vaginal delivery, initially uncomplicated. Her third stage w as complicated by a hemorrhage that started at the time of placental delivery. Her fundus remained f irm throughout her hemorrhage. She required the delayed placement of a Bakri balloon due to slow per sistent bleeding. Her quantitative blood loss was 1300 mL. HOSPITAL COURSE: The patient was admitted and induced with misoprostol followed by Pitocin and deliv ered as listed above. She received Unasyn while her Bakri balloon was placed. After removal, she re ceived Pitocin for 4 hours. Her bleeding was scant after the Bakri balloon was removed. She did not have any chest pain, headaches, visual changes, shortness of breath, dizziness, upper abdominal pain or severe lower extremity edema. During her hospitalization. She was eating, ambulating, and urina ting well. Her breasts were without problems. She did not have any significant pain in her belly or vulva. Notably, her baby had to be transported to [place] due to transition problems. He is curren tlmario doing well in the NICU. The patient's gestational hypertension did not worsen during her hospitalization. She did not have a ny abnormal preeclampsia labs, she did not develop proteinuria, and she never had symptoms of preecla mpsia. DISCHARGE EXAMINATION GENERAL: The patient is afebrile with normal vital signs. Alert and smiling and ambulating, and in no apparent distress. ABDOMEN: Soft, nontender, nondistended. Fundus firm and 3 cm above the umbilicus. Please note that this exam has been persistent throughout her hospitalization. Her fundus was very firm and nontende r. There was trace lower extremity edema bilaterally. She is Rh positive, rubella immune, varicella immune, and has received her Tdap and flu vaccines. ernestine was advised that if she becomes again, she should notify her physician of the less common type of hemorrhage that she had. DISCHARGE DISPOSITION: Home. FOLLOWUP: In 2 weeks. This is different than our 1-week usual followup as she will probably be busy with her infant in the ICU. PRECAUTIONS: Routine instructions were given. Also, patient was counseled that preeclamp galen can develop during the period and that she needs to return p.r.n. symptoms. MEDICATIONS: Ibuprofen, Tylenol and Colace as needed. TD: 11/01/2020 14:36
--- NOTE | 2020-11-01 16:53 | Labor Flowsheet ---
Labor Flowsheet Datetime Report Generated by CPN: 11/01/2020 16:52 Datetime: 11/01/2020 12:22 VITAL SIGNS NBP Sys/Rosa/Mean (mmHg): 131 : 80 : 90 Pulse: 97 Datetime: 10/31/2020 08:14 SpO2 (%): 99 Datetime: 10/31/2020 06:45 Stage of : Recovery Respirations: 18 PAIN Pain Scale: 0 Pain Presence: None/Denies Datetime: 10/31/2020 06:40 Temperature (C): 36.8 Temperature Route: Oral Datetime: 10/31/2020 06:15 I/O Interventions: [place] Cath Inserted Patient Care Comments: by Dr Macias Datetime: 10/31/2020 03:45 Anesthesia Comments: epidural pump off Datetime: 10/31/2020 03:36 Medication Comments: IV bolus Datetime: 10/31/2020 03:14 LaborFlag: Labor Datetime: 10/31/2020 03:01 STAGE 2 Pushing: Coached on Pushing Datetime: 10/31/2020 03:00 UTERINE ACTIVITY Monitor Mode: External Frequency (min): 2-4 Quality: Strong Duration (sec): 60+ Resting Tone (Palpate): Relaxed ASSESSMENT A Monitor Mode: Telemetry FHR Baseline Rate : 150 Variability: Minimal - Undetectable to <=5 bpm Decelerations: Variable Category: Category II Datetime: 10/31/2020 02:50 Accelerations: None Datetime: 10/31/2020 02:38 Oxygen Amount (LPM): 10 Oxygen Method: Non-Rebreather Datetime: 10/31/2020 02:25 Actions for Decelerations: Oxygen Applied; IV Bolus COMMUNICATION Communication: Call/Page Placed to Provider Provider Notified (Name): Gilberto Communication Comments: SVE read to provider, orders given to repo/fluidbolus/O2 Datetime: 10/31/2020 02:22 VAGINAL EXAM Dilatation (cm): 7.5 Effacement (%): 100 Station: -2 Exam by: HMahala Datetime: 10/31/2020 02:16 Monitor Interventions for UA: [place] Adjusted Monitor Interventions for FHR: Ultrasound Adjusted Datetime: 10/31/2020 02:14 Patient Position/Activity: Right Tilt Datetime: 10/31/2020 02:10 Epidural Procedure: Test Dose Datetime: 10/31/2020 02:00 Comments: indeterminate d/t maternal position Datetime: 10/31/2020 01:48 PROCEDURE TIME OUT Procedure Verify: Correct Patient Identity; Accurate Procedure Consent Form; Agreement on Procedure to be Done; Correct Patient Position ANESTHESIA Epidural Positioning: Sitting Datetime: 10/31/2020 01:30 Pattern: Normal: <= 5 Contractions in 10 Minutes PATIENT CARE IV/Blood Work: IV Started Datetime: 10/31/2020 01:29 MEDICATIONS Pitocin (milliunits): Discontinued Datetime: 10/31/2020 01:24 Pain Type: Cramping Pain Location: Abdomen; Back Pain Relief Measures: wants epidural Pain Coping: Requesting Pain Medication or Epidural Pain Assessment Comments: Nitrous started Datetime: 10/31/2020 01:13 Notification Reason: Pain Datetime: 10/31/2020 01:12 Cervix, Consistency: Soft Cervix, Position: Midposition Datetime: 10/31/2020 00:50 Membrane Status: Ruptured Membranes Rupture Method: Spontaneous Amniotic Fluid Color: Clear Amniotic Fluid Amount: Small Membrane Comments: leaking Datetime: 10/30/2020 23:00 Pitocin Checklist: At Least 1 Acceleration of 15 bpm x 15 Seconds in 30 Minutes or Adequate Variabi lity; No More than 1 Late Deceleration Occurred in Past 30 Minutes; No More than 2 Variable Decelerat ions > 60 Seconds in Duration and decreasing >60 bpm in 30 minutes; No More than 5 Uterine Contractio ns in 10 Minutes for any 20 Minute Interval; Uterus Palpates Soft between Contractions Datetime: 10/30/2020 22:58 Antibiotics: Ampicillin IV 2 Gm Datetime: 10/30/2020 21:00 FHR Baseline Changes: No Baseline Change Datetime: 10/30/2020 19:38 Vaginal Bleeding: None WILLIS'S SCORE Dilatation (cm): 1-2 cm Effacement: 0-30_ effaced Station: minus 2 Consistency: Medium Position: Posterior Total Willis's Score: 3 : 0-4 = Unfavorable cervix MATERNAL ASSESSMENT Level of Consciousness: Alert DTR's/Clonus: DTRs 2+; No Clonus Headache: Denies Breath Sounds, Left: Clear and Equal Breath Sounds, Right: Clear and Equal Nausea/Vomiting: Denies RUQ Epigastric Pain: Denies Datetime: 10/30/2020 18:39 Cervical Ripening Agents: Cytotec @ Datetime: 10/30/2020 12:34 Hygiene: Shower Datetime: 10/30/2020 09:30 Contraction Comments: Poor tracing of contractions Datetime: 10/30/2020 06:20 Comfort Measures: Breathing/Relaxation
== END 2020-11-01 16:15 | disposition home or self-care (01) | DRG 768 ==
LOC: WFO 17:48 → FBP 17:53 → WFO 19:02 → OBSVTOIN 10-30 19:49
PROVIDERS: ADMIT Obstetrics & Gynecology; ATTEND Obstetrics & Gynecology
PROC: 10E0XZZ Delivery of Products of Conception, External Approach (ICD-10-PCS; principal; 2020-10-31)
PROC: 0W3R7ZZ Control Bleeding in Genitourinary Tract, Via Natural or Artificial Opening (ICD-10-PCS; 2020-10-31)
PROC: 0UC97ZZ Extirpation of Matter from Uterus, Via Natural or Artificial Opening (ICD-10-PCS; 2020-10-31)
DX: O13.4 Gestational [pregnancy-induced] hypertension without significant proteinuria, complicating childbirth (principal); Z37.0 Single live birth; O72.1 Other immediate postpartum hemorrhage; O99.824 Streptococcus B carrier state complicating childbirth; Z3A.37 37 weeks gestation of pregnancy; Z20.822 Contact with and (suspected) exposure to COVID-19
CPT/HCPCS: 59025; 80053; 85025; 85027; 85384; 87635; A9270; G0378; J7120; 86850; 86900; 86901; 86920

== ENCOUNTER 2020-11-05 01:22 | Outpatient (CLI) | payer MEDICAID | END 2020-11-05 01:23 | disposition critical access hospital (66) | LOC: EMS 01:22 | PROVIDERS: ATTEND Surgery | DX: O86.4 Pyrexia of unknown origin following delivery (principal); O99.345 Other mental disorders complicating the puerperium; F41.9 Anxiety disorder, unspecified | CPT/HCPCS: A0425; A0427; A0999 ==

== ENCOUNTER 2020-11-14 08:00 | Outpatient (CLI) | payer MEDICAID ==
[2020-11-14 12:10] LABS: HGB - HEMOGLOBIN 14.2 g/dL (12.0-16.0); MEAN CORPUSCULAR HEMOGLOBIN 30.3 pg (27.0-31.0); MEAN CORPUSCULAR HGB CONC 31.9 g/dL (32.0-36.0); MEAN CORPUSCULAR VOLUME 95.1 fL (81.0-99.0); RED BLOOD COUNT 4.68 10^6/uL (4.20-5.40); RED CELL DISTRIBUTION WIDTH 13.1 % (12.0-15.0); WHITE BLOOD COUNT 8.5 x10^3/uL (4.8-10.8)
[2020-11-14 12:34] LABS: ALBUMIN 4.3 g/dL (3.2-5.5); ALBUMIN/GLOBULIN RATIO 1.1 (1.0-2.2); BILIRUBIN,TOTAL 0.3 mg/dL (0.2-1.0); CREATININE 0.9 mg/dL (0.4-1.0); TOTAL PROTEIN 8.1 g/dL (6.7-8.2)
== END 2020-11-14 23:59 | disposition home or self-care (01) ==
LOC: LAB 08:00
PROVIDERS: ATTEND Obstetrics & Gynecology
DX: O86.04 Sepsis following an obstetrical procedure (principal)
CPT/HCPCS: 36415; 80053; 85027

== ENCOUNTER 2021-01-01 08:00 | Outpatient (CLI) | payer MEDICAID ==
[2021-01-01 16:35] LABS: BILIRUBIN,URINE NEGATIVE (NEGATIVE); GLUCOSE, URINE (UA) NEGATIVE (NEGATIVE); KETONES,URINE (UA) NEGATIVE (NEGATIVE); LEUKOCYTE ESTERASE, URINE SMALL (NEGATIVE); NITRITE,URINE POSITIVE (NEGATIVE); OCCULT BLOOD,URINE SMALL (NEGATIVE); PROTEIN,URINE TRACE mg/dL (NEGATIVE); UROBILINOGEN,URINE 0.2 (NORMAL) E.U./dL (NORMAL)
[2021-01-01 16:48] LABS: CLARITY,URINE HAZY (CLEAR)
[2021-01-01 16:53] LABS: SQUAMOUS EPITHELIAL CELL,UR FEW Squamous (<= Few); WBC,URINE >25 /HPF (0-5)
[2021-01-01 16:54] LABS: BACTERIA,URINE Moderate /HPF (None Seen)
== END 2021-01-01 23:59 | disposition home or self-care (01) ==
LOC: LAB.R 08:00
PROVIDERS: ATTEND Nurse Practitioner Obstetrics & Gynecology
DX: R30.0 Dysuria (principal)
CPT/HCPCS: 81001; 87086; 87181

== ENCOUNTER 2024-01-12 09:32 | Outpatient (CLI) | payer OTHER, MEDICAID | END 2024-01-12 23:59 | disposition EMS.NT | LOC: EMS 09:32 | DX: Z04.1 Encounter for examination and observation following transport accident (principal) ==

== ENCOUNTER 2024-01-12 15:59 | Emergency (ER) | payer OTHER, MEDICAID ==
[2024-01-12 16:23] VITALS: BP 155/91; O2SAT 100
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
== END 2024-01-12 16:55 | disposition home or self-care (01) ==
LOC: ED 15:59
DX: S29.012A Strain of muscle and tendon of back wall of thorax, initial encounter (principal); V43.52XA Car driver injured in collision with other type car in traffic accident, initial encounter; Y92.410 Unspecified street and highway as the place of occurrence of the external cause; I10 Essential (primary) hypertension
CPT/HCPCS: 99281; 99283

== ENCOUNTER 2024-01-26 08:00 | Outpatient (CLI) | payer MEDICAID, OTHER ==
--- NOTE | 2024-01-26 15:45 | XRAY Report ---
PROCEDURE: Cervical Spine 4-5V INDICATIONS: SPRAIN OF CERVICAL SPINE TECHNIQUE: 4 views of the cervical spine acquired. COMPARISON: None. FINDINGS: Bones: No fractures or dislocations to the T1 level. There is straightening of the normal cervical l ordosis without subluxation in the neutral position. Oblique images demonstrate no bony foraminal rebel noses. Soft tissues: No prevertebral soft tissue swelling. IMPRESSION: Mild straightening of the normal cervical lordosis may be due to muscle spasm. Otherwise normal radiograph the cervical spine. Reviewed by: Lizzette Mcconnell MD on 01/26/2024 3:44 PM PDT Approved by: Lizzette Mcconnell MD on 01/26/2024 3:44 PM PDT Station ID: [id number]
== END 2024-01-26 23:59 | disposition home or self-care (01) ==
LOC: DI.S 08:00
PROVIDERS: ATTEND Emergency Medicine
DX: S13.4XXA Sprain of ligaments of cervical spine, initial encounter (principal)